=== PATIENT | male | born 1940 | race Caucasian/White ===

== ENCOUNTER → 2019-12-12 | Outpatient (CLI) | payer MEDICARE, MEDICAID ==
[~2019-12-12] MED LIST: AMIO200T42 PO; APIX5TAB PO; FOLI-17 PO; METO25TA35 PO; PRED10TA PO; THIA100T67 PO
[2019-12-12 16:54] LABS: ALBUMIN 3.3 g/dL (3.4-5.0); ANION GAP 5 mmol/L (5-15); CALCIUM 9.2 mg/dL (8.5-10.1); CHLORIDE 108 mmol/L (98-107)
[2019-12-12 16:57] LABS: ALANINE AMINOTRANSFERASE 17 U/L (12-78); ALKALINE PHOSPHATASE 123 U/L (45-117); BILIRUBIN,TOTAL 0.5 mg/dL (0.2-1.0); TOTAL PROTEIN 7.3 g/dL (6.4-8.2)
== END | disposition home or self-care (01) ==
LOC: LAB 16:07
PROVIDERS: ATTEND Nurse Practitioner
DX: E83.51 Hypocalcemia (principal)
CPT/HCPCS: 36415; 80053